=== PATIENT | male | born 1950 | race Caucasian/White ===

== ENCOUNTER 2017-04-13 11:19 | Emergency (ER) | payer OTHER ==
[~2017-04-13] VITALS: Ht 182.9 cm; Wt 72.6 kg
--- NOTE | 2017-04-13 11:24 | NUR ---
REQUESTING FOR HIS INSURANCE TO BE CHECKED FIRST AND MAKE SURE ITS BEING ACCEPTED BY THE HOSPITAL BEFORE HE GETS TRIAGED.
[2017-04-13] MEDS ORDERED: FLUORESCEIN SODIUM OPHTH 1 EA STRIP ONE ×2 (11:40→12:03)
[2017-04-13] MEDS ORDERED: TETRACAINE HCL/PF 0.5% UD 2 ML BOTTLE ONE ×2 (11:40→12:03)
[2017-04-13] MEDS ORDERED: TETRACAINE HCL/PF 0.5% UD 2 ML BOTTLE OP ONE (12:00)
[2017-04-13] MEDS ORDERED: FLUORESCEIN SODIUM OPHTH 1 EA STRIP OP ONE (12:00)
--- NOTE | 2017-04-13 12:37 | NUR ---
CALLED [facility] FOR [facility]
[2017-04-13 13:03] VITALS: BP 160/84
--- NOTE | 2017-04-13 13:03 | NUR ---
Patient discharged to home in stable condition. Written and verbal after care instructions given. Patient verbalizes understanding of instruction.
== END 2017-04-13 13:04 | disposition home or self-care (01) ==
LOC: ER 11:20
DX: S05.92XA Unspecified injury of left eye and orbit, initial encounter (principal); X58.XXXA Exposure to other specified factors, initial encounter; Y93.89 Activity, other specified; Y92.89 Other specified places as the place of occurrence of the external cause; Y99.8 Other external cause status
CPT/HCPCS: 99283; A4606; Z7610